=== PATIENT | female | born 1960 | race African-American/Black ===

== ENCOUNTER 2025-03-31 08:28 | Emergency (ER) | payer MEDICARE, MEDICAID ==
[~2025-03-31] VITALS: Ht 167.6 cm; Wt 71.0 kg
[~2025-03-31 08:28] MED LIST: benazepril; simvastatin
[2025-03-31 08:46] VITALS: O2SAT 97
[2025-03-31 09:41] LABS: BASOPHILS % 1.1 % (0.0-2.0); EOSINOPHILS % 1.8 % (0.0-5.0); HEMATOCRIT. 40.6 % (36.0-48.0); HEMOGLOBIN. 13.6 g/dL (12.0-16.0); LYMPHOCYTES % 30.8 % (20.0-50.0); MEAN PLATELET VOLUME 9.1 fl (7.4-10.4); MONOCYTES % 10.9 % (2.0-8.0); NEUTROPHILS % 55.4 % (40.0-76.0); PLATELET 158 x1000/uL (130-400); RED BLOOD CELL COUNT 4.41 mill/uL (4.2-5.4); RED CELL DISTRIBUTION WIDTH 14.2 % (11.6-14.6)
[2025-03-31 09:54] LABS: CREATININE 0.9 mg/dL (0.6-1.0)
[2025-03-31 09:55] LABS: TROPONIN I HIGH SENSITIVITY < 4 ng/L (3.0-34); UREA NITROGEN BLOOD 10 mg/dL (9-23)
[2025-03-31 09:56] LABS: ASPARTATE AMINOTRANSFERASE 21 IU/L (<34)
[2025-03-31 09:57] LABS: BILIRUBIN DIRECT 0.1 mg/dL (<=3.0); BILIRUBIN TOTAL 0.6 mg/dL (0.1-1.0); PROTEIN TOTAL 6.7 g/dL (6.0-8.3)
[2025-03-31] MEDS ORDERED: AMOX1TAB16 MT (11:00)
[2025-03-31] MEDS ORDERED: DOXY100C5 MT (11:00)
[2025-03-31 11:05] LABS: CLARITY URINE CLEAR (CLEAR); COLOR URINE YELLOW (YELLOW); GLUCOSE URINE NEGATIVE (NEGATIVE); KETONES URINE NEGATIVE (NEGATIVE); LEUKOCYTE ESTERASE URINE NEGATIVE (NEGATIVE); NITRITE URINE NEGATIVE (NEGATIVE); OCCULT BLOOD URINE TRACE (NEGATIVE); PH URINE 5.5 (4.5-8.0); PROTEIN URINE NEGATIVE (NEGATIVE); SPECIFIC GRAVITY URINE 1.016 (1.005-1.030); UROBILINOGEN URINE 0.2 E.U./dL (0.2-1.0)
[2025-03-31 11:25] LABS: BACTERIA URINE 1+; RBC URINE 0-2 /hpf (0-2); SQUAMOUS EPITHELIAL CELL URINE 3+ /lpf (RARE/1+); WBC URINE 0-2 /hpf (0-2); YEAST URINE NONE SEEN
[2025-03-31 11:28] LABS: INFLUENZA TYPE A Presumptive Negative (Pres. Neg.)
[2025-03-31 11:29] LABS: INFLUENZA TYPE B Presumptive Negative (Pres. Neg.)
[2025-03-31] MEDS: AMOXICILLIN/POTASSIUM CLAVULANATE 875/125MG TAB PO SCH (11:46)
[2025-03-31] MEDS: DOXYCYCLINE HYCLATE 100MG CAPSULE PO SCH (11:46)
[2025-03-31 11:47] VITALS: BP 169/85; PULSE 74; RESP 19; TEMP 37; O2SAT 99
== END 2025-03-31 11:50 | disposition home or self-care (01) ==
LOC: ER 08:40
DX: J18.9 Pneumonia, unspecified organism (principal); E78.00 Pure hypercholesterolemia, unspecified; I10 Essential (primary) hypertension; M79.7 Fibromyalgia; R06.02 Shortness of breath; Z90.710 Acquired absence of both cervix and uterus; Z20.822 Contact with and (suspected) exposure to COVID-19
CPT/HCPCS: 36415; 71045; 80048; 80076; 81003; 83880; 84484; 85025; 87426; 87804; 99284